=== PATIENT | male | born 1955 | race Caucasian/White ===

== ENCOUNTER → 2017-08-13 | Outpatient (CLI) | payer MEDICARE ==
--- NOTE | 2017-08-13 15:45 | DIAGNOSTIC IMAGING REPORT ---
L PELVIS UNILATERAL HIP 1 VIEW HISTORY: 61 years-old Male LEFT HIP PAIN acute left-sided head pain with recent running. COMPARISON: None available TECHNIQUE: AP view the pelvis with frog-leg view of the left hip FINDINGS: No pelvic ring fracture identified. Moderate left. The right joint space narrowing with subchondral sclerosis and marginal spurring involves the bilateral femoral acetabular joints. There is mild exophytic prominence involving the left greater than right femoral head neck junction laterally. There is no acute fracture or subluxation identified. There are probable phleboliths of the pelvis. IMPRESSION: 1. No acute fracture or dislocation. 2. 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 The above report was generated using voice recognition software. It may contain grammatical, syntax or spelling errors. Electronically signed by: Albaro Arteaga M.D. 08/13/2017 3:44 PM Dictated Date/Time: 08/13/2017 3:43 PM
== END | disposition home or self-care (01) ==
LOC: C.RDSM 14:39
PROVIDERS: ATTEND Physician Assistant
DX: R52 Pain, unspecified (principal); M16.0 Bilateral primary osteoarthritis of hip